=== PATIENT | male | born 1945 | race Two or more races ===

== ENCOUNTER 2024-02-06 06:26 | Day surgery (SDC) | payer OTHER, SELFPAY ==
[2024-01-26 09:27] VITALS: BMI 24.6
[2024-01-26 10:38] LABS: Hematocrit 48.2 % (39.0-52.0); Hemoglobin 16.4 g/dL (13.0-18.0); Mean Corpuscular Volume 91.1 fL (80.0-94.0); Mean Platelet Volume 10.2 fL (7.4-10.4); Platelet Count 206 10^3/uL (130-400); Red Blood Cell Count 5.29 10^6/uL (4.70-6.10); Red Cell Dist. Width 12.4 % (11.5-14.5); White Blood Cell Count 3.7 10^3/uL (4.8-10.8)
[2024-01-26 11:25] LABS: Blood Urea Nitrogen 24 mg/dl (9-20); Calcium 9.4 mg/dl (8.4-10.2); Carbon Dioxide 26 mmol/L (22-30); Chloride 104 mmol/L (98-107); Estimated Creatinine Clearance 69 ml/min; Glucose 81 mg/dl (70-99); Potassium 4.4 mmol/L (3.5-5.1); Sodium 141 mmol/L (135-145); eGFR > 60.00
[2024-02-06] VITALS (10 sets, daily range): BP systolic 139–182; BP diastolic 73–93; BMI 24.6
[2024-02-06] MEDS: TYLENOL 1000 MG PO (06:34)
--- NOTE | 2024-02-06 06:57 | PTCARENOTE ---
No IVF started due to the IV shortage and protocol.
--- NOTE | 2024-02-06 07:02 | HP.FOC2 ---
Focused History & Physical
Chief Complaint
HPI:
Chief Complaint: Left inguinal hernia
HPI / Indication for Planned Procedure: Patient is a 79-year-old male recently seen in outpatient surgical evaluation secondary to a history of swelling in the left inguinal region. This past June,, he noticed the acute onset of discomfort,
pain and swelling in the left inguinal region. He has been utilizing a truss for management since. Hernia is bothersome for him some days more than others. Outpatient surgical evaluation confirmed the presence of his left inguinal hernia. He
presents today for scheduled operative correction.
Relevant Past Medical History: Other (Hypercholesterolemia, BPH, history of kidney stones)
Relevant Social History: Negative
Relevant Family History: Negative
Relevant Past Surgical History: Positive for (Prostate surgery, open right inguinal hernia repair)
Review of Systems
Review of Pertinent Systems: All Systems Negative
Medication
See Medication form for detailed medications: Yes
Medication List (including Herbals & OTC):
aspirin 81 mg capsule 81 mg PO DAILY 01/27/24
atorvastatin 10 mg tablet 20 mg PO HS 01/27/24
szguitmg-mo-gfizc 300 mcg-K 60 mcg-lycop 600 mcg-lutein 300 mcg tablet (Centrum Silver Men) 1 tab PO DAILY 01/27/24
Medications Reviewed: Yes
Allergies and Reactions
Patient has Allergies: No
Noted Allergies and Reactions:
Allergy/AdvReac Type Severity Reaction Status Date / Time
No Known Allergies Allergy Unverified 02/06/24 06:26
Pertinent Physical Exam
All Other Systems: Negative
Head/Neck: Normal
Lungs: Normal
Heart: Normal
Abdomen: Other (Left inguinal hernia)
Extremities: Normal
Neurological: Normal
Diagnosis / Assessment
79-year-old male presenting for scheduled operative correction symptomatic left inguinal hernia
Plan / Procedure
Robotic assisted laparoscopic repair left inguinal hernia with mesh
Anesthesia/Sedation to be done by Anesthesia Provider: Yes
--- NOTE | 2024-02-06 07:05 | W.SUR.PREOP ---
Pre-Operative Surgical Note
-
I have examined this patient prior to the performance of the scheduled procedure.
The patient's condition is unchanged from the time of the current History and
Physical and the patient is able to undergo the scheduled procedure.
--- NOTE | 2024-02-06 09:16 | W.IMMPOSTOP ---
Surgical Immed Post Op Note
-
Primary Surgeon: Robyn
Assisting Surgeon: Asya ARTIS
Pre-op Diagnosis: Left inguinal hernia
Post-op Diagnosis: Left inguinal hernia
Procedure Performed: RAL HEBER repair left inguinal hernia with mesh
Anesthesia Type: GETA +0.25% Marcaine
Specimen / Cultures: None
Estimated Blood Loss: 6 mL
Complications: None immediate
Operative Findings: Large left indirect inguinal hernia, slider containing sigmoid colon and mesentery. Cord lipoma reduced and excised as well to facilitate mesh placement. Left direct and femoral spaces normal. 3D max extra-large mid weight
mesh repair secured to Trenton's ligament with 2-0 Vicryl x 2. Peritoneal flap closed with 2-0 Monocryl STRATAFIX spiral. No incidental operative findings.
--- NOTE | 2024-02-06 09:38 | OR.RPT ---
Operative Report
Operative Report
Date of operative procedure: 02/06/2024
Primary Surgeon: Jhoan Carlson MD
Assisting Surgeon: STEFF Ham
Pre-op Diagnosis: Left inguinal hernia.
Post-op Diagnosis: Left inguinal hernia, indirect, slider.
Procedure Performed: Robotic assisted laparoscopic HEBER repair left inguinal hernia with mesh; 3D max extra-large mid weight.
Anesthesia Type: GETA +0.25% Marcaine.
Specimen / Cultures: None/none.
Estimated Blood Loss: 6 mL.
Complications: None immediate.
Indications for operative procedure: Mr. Macdonald is a 79-year-old male recently seen in outpatient surgical evaluation secondary to a history of swelling in the left inguinal region. This past June,, he noticed the acute onset of
discomfort, pain and swelling in the left inguinal region. He has been utilizing a truss for management since. The inguinal hernia is bothersome for him some days more than others. Outpatient surgical evaluation confirmed the presence of his left
inguinal hernia. I reviewed with the patient preoperatively management options. He wished to pursue operative correction. We discussed various operative approaches to repair and elected to proceed with a robotic assisted laparoscopic left
inguinal herniorrhaphy with mesh. The anticipated operative procedure was fully reviewed in detail with the patient preoperatively obtaining written informed consent.
Brief summary of operative Findings: Large left indirect inguinal hernia, slider containing sigmoid colon and portions of its mesentery. A lipoma of the cord structures was identified, reduced and excised as well to facilitate mesh placement. The
left direct and femoral spaces were normal. 3D max extra-large mid weight mesh repair secured to Trenton's ligament with 2-0 Vicryl x 2. Peritoneal flap closed with 2-0 Monocryl STRATAFIX spiral. No incidental operative findings.
Operation detail: The patient was identified in the preoperative holding area. I confirmed the surgical site and side with the patient preoperatively which was then marked and initialed by myself. He was interviewed by the anesthesia and nursing
staff then brought back to the operating room. The patient was placed on the operating table in supine position. The bilateral upper extremities were carefully padded and tucked at his side utilizing the arm guard positioning system. Pneumatic
compression boots were on the bilateral lower extremities. Following induction of general endotracheal anesthesia the patient was administered Ancef 2 g IV for prophylactic antibiotic coverage. The patient's anterior abdominal wall was now widely
and sterilely prepped with ChloraPrep and then draped in the usual manner. The surgical timeout was completed and the procedure was confirmed.
I initially proceeded with Veress needle insufflation in the left subcostal midclavicular line location. Once insufflated to 12 mmHg pressure then a left midclavicular line 8 mm trocar was then placed. The robotic scope was inserted, there was no
evidence of iatrogenic injury from access. The Veress needle was withdrawn. An epigastric 8 mm trocar was placed just to the left of the midline. A right midclavicular line 8 mm trocar was placed. The patient was then transition into
Trendelenburg to expose the inguinal/pelvic space and the robot was docked.
At the surgeon console inspection of the pelvis confirmed the presence of a large left indirect inguinal hernia, slider containing sigmoid colon and portions of its mesentery as well. The left direct and femoral spaces were normal. There was no
right inguinal hernia. There were no additional incidental intra-abdominal findings.
I initially began with creation of a peritoneal flap at the level of the left ASIS to the left medial umbilical ligament. The preperitoneal plane was now established along the length of the flap and developed inferiorly down to the inguinal space.
The medial dissection proceeded until the notch of the pubic symphysis was exposed at the midline followed by Trenton's ligament on the left side. Trenton's ligament was now cleared through the direct and femoral space; both of which were normal.
The underside of Trenton's ligament was exposed as well. The peritoneal flap was now mobilized laterally down to the internal ring. The hernia sac was then grasped and begun to be reduced out of the inguinal canal from an anterior lateral to
anterior medial approach. I carefully continued to reduce the hernia sac off of the cremasteric fibers and cord contents all the way to the apex of the hernia sac. In doing so a moderate size lipoma of the inguinal canal and cord structures was
identified. It was reduced off of the hernia sac and then excised to facilitate mesh placement. Next the hernia sac was now reduced off of its posterior attachments with identification of the vas and the spermatic cord vessels. The hernia sac
dissection continued back proximally carefully mobilizing sigmoid colon mesentery attachments to the cord structures back past the turn in the left vas deferens and then overlying the left iliac space to meet up with the medial dissection. The
posterior dissection continued until there was wide separation between the vas and the spermatic cord vessels. The dissection continued posterior laterally for full exposure of the myopectineal orifice.
With the myopectineal orifice now completely exposed hemostasis was confirmed. A 3D max extra-large mid weight mesh was utilized for repair. The mesh was positioned parallel to the ileopubic tract. It was secured at 2 separate locations inferior
medially on Trenton's ligament with 2 simple interrupted 2-0 Vicryl sutures. The patient was now begun to be taken out of Trendelenburg to confirm that the posterior aspect of the mesh was lying flat and that there was no shelling or undermining of
the mesh by the peritoneal edge. Insufflation pressure was also reduced down to 8 mmHg pressure at this point. The peritoneal flap was now closed with a 2-0 Monocryl STRATAFIX spiral suture with a running Paradise type stitch.
A flexible suction catheter was placed through the left lateral 8 mm trocar and introduced into the peritoneal flap to evacuate the air out of the preperitoneal space. This again confirmed good positioning of the inguinal hernia mesh. There was no
shelling or folding of the mesh and no undermining and mesh by the peritoneal edge. The peritoneal covering of the mesh was complete and intact.
The robot was now undocked. All sponge instrument and needle counts were confirmed to be correct x 2. The CO2 insufflation was carefully evacuated out of the abdominal cavity. The trocar sites were removed as well as the flexible suction
catheter. Skin was closed with 4-0 Monocryl. Sterile surgical glue dressings were applied. The patient tolerated the procedure well and was transferred to the recovery unit for routine postoperative monitoring.
I was present for the entirety of the operative procedure.
[2024-02-06] MEDS: DILAUDID 0.25 MG IV ×2 (09:42→10:03)
== END 2024-02-06 12:08 | disposition home or self-care (01) ==
LOC: SDS 06:26
PROVIDERS: ATTENDING PHYSICIAN Surgery; FAMILY PHYSICIAN Family Medicine
PROC: 0YU64JZ Supplement Left Inguinal Region with Synthetic Substitute, Percutaneous Endoscopic Approach (ICD-10-PCS; 2024-02-06)
PROC: 8E0W4CZ Robotic Assisted Procedure of Trunk Region, Percutaneous Endoscopic Approach (ICD-10-PCS; 2024-02-06)
DX: K40.90 Unilateral inguinal hernia, without obstruction or gangrene, not specified as recurrent (principal)
CPT/HCPCS: 49650; 36415; 80048; 85027; 93005; C1781

== ENCOUNTER 2024-12-23 20:52 | Emergency (ER) | payer OTHER, SELFPAY ==
[2024-12-23 20:57] VITALS: BP 193/109
[2024-12-23 21:18] LABS: Urine Character Slightly Cloudy (Clear)
[2024-12-23 21:22] LABS: Hematocrit 50.6 % (39.0-52.0); Hemoglobin 17.4 g/dL (13.0-18.0); Mean Corp Hgb Conc. 34.4 g/dL (33.0-37.0); Mean Corpuscular Volume 89.9 fL (80.0-94.0); Nucleated Red Blood Cells % 0 % (-); Platelet Count 252 10^3/uL (130-400); Red Cell Dist. Width 12.4 % (11.5-14.5)
[2024-12-23 21:31] VITALS: BP 178/112
[2024-12-23 21:32] VITALS: BMI 24.8
[2024-12-23 21:33] LABS: ALT (SGPT) 21 U/L (0-50); AST (SGOT) 19 U/L (17-59); Albumin 4.7 g/dl (3.5-5.0); Alkaline Phosphatase 90 U/L (38-126); Blood Urea Nitrogen 17 mg/dl (9-20); Calcium 10.0 mg/dl (8.4-10.2); Carbon Dioxide 25 mmol/L (22-30); Chloride 106 mmol/L (98-107); Glucose 104 mg/dl (70-99); Potassium 4.4 mmol/L (3.5-5.1); Sodium 139 mmol/L (135-145); Total Protein 7.3 g/dl (6.3-8.2); eGFR > 60.00
[2024-12-23 21:34] LABS: Urine Squamous Cell 0-2 /LPF (Few)
[2024-12-23 21:35] LABS: Urine White Cell 0-2 /HPF (0-5)
[2024-12-23] MEDS: MOTRIN 600 MG PO (21:43)
[2024-12-23] MEDS: FLOMAX 0.4 MG PO (21:44)
[2024-12-23 22:00] VITALS: BP 154/110
--- NOTE | 2024-12-23 23:12 | ED.GENMED ---
History of Present Illness
General
Chief Complaint: Flank Pain
Time Seen by Provider: 12/23/24 21:25
History of Present Illness
History of Present Illness:
79-year-old male presents the emergency department for evaluation of intermittent right flank and right lower quadrant pain that has been ongoing for the past 4 days. Pain seems to be only present at nighttime, severe when it develops but then
resolved spontaneously. Roosevelt comparable to past kidney stones but he has never had waxing waning symptoms like this. Denies any dysuria or hematuria. No fevers or chills. Denies any nausea, vomiting, or diarrhea.
Review of Systems
Review of Systems
Allergies reviewed?: Yes
All Other Systems: ROS reviewed and negative except as documented in HPI and ROS
Phy Exam
Physical Exam
Physical Exam:
GEN: Well appearing, NAD, WDWN
HEENT: Oral mucosa moist, no scleral icterus
Cardiac: Regular rate
Lung: No respiratory distress, no tachypnea
Abdomen: Soft, nontender, no rigidity or palpable masses, no CVA tenderness
MSK: No gross deformity or injuries
Skin: Good color, no pallor or jaundice, no rashes
Neuro: AO x3, moves all extremities freely
Psych: Calm, cooperative
Course
Orders/Labs/Results
Orders:
Orders
12/23/24 21:09
Complete Blood Count/With Diff Urgent
Comprehensive Metabolic Panel Urgent
Urinalysis Reflex To Culture Urgent
Date Specimen was Collected: 12/23/24
Time Specimen was Collected: 21:01
Urine Microscopic Reflex Cult Urgent
Urine Culture Urgent
FÁTIMA Source: U
Specimen Description:
Date Specimen was Collected: 12/23/24
Time Specimen was Collected: 21:01
12/23/24 21:37
Ibuprofen [Motrin] 600 mg PO NOW STA
Tamsulosin [Flomax] 0.4 mg PO NOW STA
12/23/24 21:38
CT Abd/pel Without Iv Or Oral Urgent
Comment:
Reason For Exam: R flank pain
Abnormal Lab Results
12/23/24
21:09
Absolute Monos (auto) 0.8 H 10^3/uL
(0.1-0.6)
Lymphocytes % 19.2 L %
(20.5-51.1)
Monocytes % 11.0 H %
(1.7-9.3)
Glucose 104 H mg/dl
(70-99)
Ur Occult Blood Reflex 3+ A
(Negative)
Leukocyte Esterase Rfl 1+ A
(Negative)
Urine RBC 3-6 A /HPF
(0-2)
Urine Bacteria (Reflex) Few A
(Negative)
Urine Albumin (Reflex) 1+ A
(Neg - Trace)
12/23/24 21:09
12/23/24 21:09
Vital Signs
Initial and Last Documented VS:
Initial Vital Signs
Temp Pulse Resp BP Pulse Ox
98.0 F 66 18 193/109 96
12/23/24 20:57 12/23/24 20:57 12/23/24 20:57 12/23/24 20:57 12/23/24 20:57
Last Documented Vital Signs
Temp Pulse Resp BP Pulse Ox
98.0 F 66 18 154/110 95
12/23/24 20:57 12/23/24 20:57 12/23/24 20:57 12/23/24 22:00 12/23/24 22:45
MDM/Problems Addressed
MDM/Problems Addressed:
Patient CT is unremarkable. It is not clear immediately why he has recurrent nocturnal right flank pain. Aorta does not appear to be enlarged or aneurysmal on noncontrast study. He had no pain in the emergency department. No reproducible pain on
exam to suggest acute surgical abdominal pathology. Do not feel that there would be additional benefit to contrast-enhanced images. Urinalysis will be sent for culture given hematuria patient is recommended to see urology as an outpatient
*Pulse Oximetry
SaO2: 95
Oxygen Mode of Delivery: Room air
Patient hypoxic: no
*Critical Care Note
Total Time (30-74mins, 75-104mins- exclusive of procedures): Not Applicable
ED Attending Note
-
Portions of this chart may have been created with voice recognition software.� Occasional wrong word or��sound alike� substitutions may have occurred due to the inherent limitations of voice recognition software.
Discharge Plan
Departure
Patient Disposition: Home (Routine Discharge)
Date of Disposition: 12/23/24
Time of Disposition: 23:21
Patient with high blood pressure during this ER visit?: Yes
Discharge Problem:
Acute right flank pain
Instructions: Flank Pain (DC)
Prescriptions:
New
celecoxib [Celebrex] 200 mg capsule
200 mg PO BID Qty: 15 0RF
No Action
atorvastatin 10 mg Tablet
20 mg PO HS
Centrum Silver Men [phone] mcg Tablet
1 tab PO DAILY
aspirin 81 mg Capsule
81 mg PO DAILY
Patient Comments:
patient stopped due to bruising
tramadol 50 mg tablet
50 mg PO Q6HPRN PRN (Reason: severe pain/breakthrough pain) Qty: 7 0RF
acetaminophen [Tylenol Extra Strength] 500 mg tablet
1,000 mg PO Q6HPRN PRN (Reason: mild pain) Qty: 1 0RF
ibuprofen 200 mg tablet
400 mg PO Q6HPRN PRN (Reason: moderate pain) Qty: 1 0RF
polyethylene glycol 3350 [Miralax] 17 gram/dose powder
4 g PO DAILY PRN (Reason: Constipation) Qty: 119 0RF
Rx Instructions:
start a laxative such as MIRALAX on day 2 after surgery if no bowel movement yet as long as no nausea/vomiting and passing gas
Referrals:
Amrit Dee MD [Family Provider, Family Practice]
Wilson Oshea MD [Active, Urology]
Activity Restrictions/Additional Instructions:
As we discussed there is no clear cause of your pain at this time. Your CT shows no evidence of kidney stone. Your blood work is unremarkable however your urine specimen does show blood in the urine and a small amount of bacteria. A urine culture
is pending and if that shows bacteria we will call you and start you on antibiotics
I recommend you see a urologist to further investigate the cause of the blood in your urine
If your pain becomes more frequent or more severe do not hesitate to return to the emergency department for reevaluation
I have prescribed you a medication called Celebrex to treat your pain symptoms, please take this twice a day but do not take [id number] ibuprofen along with this
Interventions
Interventions:
*Risk Screen - Suicide Last Done: 12/23/24 20:59
*General Assessment Last Done: 12/23/24 20:59
*Neglect/Abuse Screening Last Done: 12/23/24 20:59
*ED- Fall Risk Assessment Last Done: 12/23/24 21:32
*ED COVID-19 Vaccine History Last Done: 12/23/24 20:59
OD-Ajtfps-Ndlunopzzm Assessment Last Done: 12/23/24 21:32
ED-Male Genitourinary Assessment Last Done: 12/23/24 21:32
Discharge Date and Time
Print Language: CUBAN
[2024-12-23] MEDS: PERCOCET 5/325 1 TABLET PO (23:27)
== END 2024-12-23 23:48 | disposition home or self-care (01) ==
LOC: EMR 20:52
PROVIDERS: EMERGENCY PHYSICIAN Student in an Organized Health Care Education/Training Program; FAMILY PHYSICIAN Family Medicine
DX: R10.31 Right lower quadrant pain (principal)
CPT/HCPCS: 99284; 74176; 80053; 81003; 81015; 85025; 87086

== ENCOUNTER 2024-12-26 03:28 | Emergency (ER) | payer OTHER, SELFPAY ==
[2024-12-26 03:33] VITALS: BP 196/104
--- NOTE | 2024-12-26 04:09 | ED.GENMED ---
History of Present Illness
General
Chief Complaint: Flank Pain
Time Seen by Provider: 12/26/24 04:11
Review of Systems
Review of Systems
All Other Systems: ROS reviewed and negative except as documented in HPI and ROS
Course
Orders/Labs/Results
Orders:
Orders
12/26/24 04:12
CT Abd/pel Without Iv Or Oral Urgent
Comment:
Reason For Exam: flank pain
12/26/24 04:26
Ketorolac [Toradol] 15 mg .ROUTE .STK-MED ONE
Ondansetron Injectable [Zofran] 4 mg .ROUTE .STK-MED ONE
12/26/24 04:31
Ketorolac [Toradol] 15 mg IV NOW STA
12/26/24 04:37
Complete Blood Count/With Diff Urgent
Comprehensive Metabolic Panel Urgent
Lipase Urgent
12/26/24 05:49
Morphine Sulfate 4 mg .ROUTE .STK-MED ONE
12/26/24 05:51
Morphine Sulfate 4 mg IV NOW STA
12/26/24 05:56
Urinalysis Reflex To Culture Urgent
Date Specimen was Collected: 12/26/24
Time Specimen was Collected: 05:51
Urine Microscopic Reflex Cult Urgent
Abnormal Lab Results
12/26/24 12/26/24
04:37 05:56
Absolute Lymphs (auto) 0.9 L 10^3/uL
(1.2-3.4)
Lymphocytes % 16.6 L %
(20.5-51.1)
Monocytes % 9.8 H %
(1.7-9.3)
Glucose 109 H mg/dl
(70-99)
Ur Occult Blood Reflex 2+ A
(Negative)
Urine RBC 7-10 A /HPF
(0-2)
Urine Bacteria (Reflex) Few A
(Negative)
Urine Albumin (Reflex) 1+ A
(Neg - Trace)
12/26/24 04:37
12/26/24 04:37
Vital Signs
Initial and Last Documented VS:
Initial Vital Signs
Temp Pulse Resp BP Pulse Ox
97.8 F 72 16 196/104 98
12/26/24 03:33 12/26/24 03:33 12/26/24 03:33 12/26/24 03:33 12/26/24 03:33
Last Documented Vital Signs
Temp Pulse Resp BP Pulse Ox
98.3 F 82 17 159/101 95
12/26/24 05:56 12/26/24 06:37 12/26/24 06:37 12/26/24 06:29 12/26/24 06:37
*Pulse Oximetry
SaO2: 98
Oxygen Mode of Delivery: Room air
ED Attending Note
-
Portions of this chart may have been created with voice recognition software.� Occasional wrong word or��sound alike� substitutions may have occurred due to the inherent limitations of voice recognition software.
Discharge Plan
Departure
Prescriptions:
No Action
atorvastatin 10 mg Tablet
20 mg PO HS
Centrum Silver Men [phone] mcg Tablet
1 tab PO DAILY
aspirin 81 mg Capsule
81 mg PO DAILY
Patient Comments:
patient stopped due to bruising
tramadol 50 mg tablet
50 mg PO Q6HPRN PRN (Reason: severe pain/breakthrough pain) Qty: 7 0RF
acetaminophen [Tylenol Extra Strength] 500 mg tablet
1,000 mg PO Q6HPRN PRN (Reason: mild pain) Qty: 1 0RF
ibuprofen 200 mg tablet
400 mg PO Q6HPRN PRN (Reason: moderate pain) Qty: 1 0RF
polyethylene glycol 3350 [Miralax] 17 gram/dose powder
4 g PO DAILY PRN (Reason: Constipation) Qty: 119 0RF
Rx Instructions:
start a laxative such as MIRALAX on day 2 after surgery if no bowel movement yet as long as no nausea/vomiting and passing gas
celecoxib [Celebrex] 200 mg capsule
200 mg PO BID Qty: 15 0RF
Referrals:
Amrit Dee MD [Family Provider, Family Practice]
Interventions
Interventions:
*Risk Screen - Suicide Last Done: 12/26/24 03:33
*General Assessment Last Done: 12/26/24 04:27
*Neglect/Abuse Screening Last Done: 12/26/24 04:27
*ED- Fall Risk Assessment Last Done: 12/26/24 04:27
*ED COVID-19 Vaccine History Last Done: 12/26/24 04:27
YM-Lhandy-Fqaayzrfqa Assessment Last Done: 12/26/24 04:41
ED-Male Genitourinary Assessment Last Done: 12/26/24 04:41
Discharge Date and Time
Print Language: MONEGASQUE
[2024-12-26 04:27] VITALS: BMI 24.5
[2024-12-26] MEDS: TORADOL 15 MG IV (04:36)
[2024-12-26 04:52] LABS: Hematocrit 48.0 % (39.0-52.0); Hemoglobin 16.7 g/dL (13.0-18.0); Mean Corp Hgb Conc. 34.8 g/dL (33.0-37.0); Mean Corpuscular Volume 88.9 fL (80.0-94.0); Nucleated Red Blood Cells % 0 % (-); Platelet Count 216 10^3/uL (130-400); Red Cell Dist. Width 12.3 % (11.5-14.5)
[2024-12-26 05:13] LABS: ALT (SGPT) 17 U/L (0-50); AST (SGOT) 17 U/L (17-59); Albumin 4.1 g/dl (3.5-5.0); Alkaline Phosphatase 91 U/L (38-126); Blood Urea Nitrogen 18 mg/dl (9-20); Calcium 9.3 mg/dl (8.4-10.2); Carbon Dioxide 26 mmol/L (22-30); Chloride 106 mmol/L (98-107); Estimated Creatinine Clearance 79 ml/min; Glucose 109 mg/dl (70-99); Lipase 53 U/L (23-300); Potassium 4.5 mmol/L (3.5-5.1); Sodium 138 mmol/L (135-145); Total Protein 6.3 g/dl (6.3-8.2); eGFR > 60.00
[2024-12-26] MEDS: MORPHINE SULFATE 4 MG IV (05:51)
[2024-12-26 05:56] VITALS: BP 168/119
[2024-12-26 06:29] VITALS: BP 159/101
[2024-12-26 06:33] LABS: Urine Character Clear (Clear)
[2024-12-26 06:43] LABS: Urine White Cell 0-2 /HPF (0-5)
--- NOTE | 2024-12-26 06:48 | ED.GENMED ---
History of Present Illness
<Rj Hussein, DO - Last Filed: 12/27/24 21:55>
General
Chief Complaint: Flank Pain
Source: patient
Exam Limitations: none
Time Seen by Provider: 12/26/24 04:11
Nursing documentation reviewed up to this point in time: agreed with
History of Present Illness
History of Present Illness:
Note:
CHIEF COMPLAINT(S)
Severe right-sided back pain
HISTORY OF PRESENT ILLNESS
The patient is a 79-year-old male with a history of previous kidney stones, presenting with severe right sided back pain. The pain started on evening and has been intermittent, disappearing during the day on Tuesday and Tuesday but
returning in the evenings. The patient experienced worsening symptoms on Tuesday night, prompting a visit to the emergency room where a computed tomography (CT) scan revealed no evidence of a recent kidney stone, although there are known stones in
one kidney. The visit also identified hematuria, prompting further urine analysis. The patient received a single dose of Percocet, which provided relief and facilitated sleep. Since then, the pain has been progressively worsening, reaching a
severity level described by the patient as '10 and plus' on a pain scale, with significant discomfort while lying down and difficulty finding a comfortable position. The patient attempted to schedule a urology follow-up but could only secure an
appointment for January 18.
PHYSICAL EXAM
General: Alert, no acute distress.
Skin: Warm, dry.
Head: Normocephalic, atraumatic.
Neck: Supple, trachea midline.
Eye Ears, nose, mouth and throat: Oral mucosa moist.
Cardiovascular: Normal peripheral perfusion, No edema.
Respiratory: Respirations are non-labored.
Gastrointestinal: Abdomen nondistended.
Back: Normal range of motion, Tenderness noted on the right side.
Musculoskeletal: Normal range of motion, normal strength.
Neurological: Alert and oriented to person, place, time, and situation, No focal neurological deficit observed.
Psychiatric: Cooperative, appropriate mood & affect.
PLAN
1. Repeat CT scan to assess for any interval changes or new findings.
2. Administer pain medication and provide intravenous fluids.
3. Encourage follow-up with a urologist, with an appointment scheduled for January 18.
DIFFERENTIAL DIAGNOSIS
The Differential Diagnosis includes, in no particular order and is not limited to:
1. Nephrolithiasis (kidney stones)
2. Pyelonephritis
3. Musculoskeletal back pain
4. Rib fracture or injury
5. Abdominal aortic aneurysm
6. Herpes zoster
7. Ureteral obstruction
8. Radiculopathy
9. Pancreatitis
10. Pleural effusion
Phy Exam
<Rj Hussein DO - Last Filed: 12/27/24 21:55>
Physical Exam
Physical Exam:
.
Course
<Rj Hussein, DO - Last Filed: 12/27/24 21:55>
Orders/Labs/Results
Orders:
Orders
12/26/24 04:12
CT Abd/pel Without Iv Or Oral Urgent
Comment:
Reason For Exam: flank pain
12/26/24 04:26
Ketorolac [Toradol] 15 mg .ROUTE .STK-MED ONE
Ondansetron Injectable [Zofran] 4 mg .ROUTE .STK-MED ONE
12/26/24 04:31
Ketorolac [Toradol] 15 mg IV NOW STA
12/26/24 04:37
Complete Blood Count/With Diff Urgent
Comprehensive Metabolic Panel Urgent
Lipase Urgent
12/26/24 05:49
Morphine Sulfate 4 mg .ROUTE .STK-MED ONE
12/26/24 05:51
Morphine Sulfate 4 mg IV NOW STA
12/26/24 05:56
Urinalysis Reflex To Culture Urgent
Date Specimen was Collected: 12/26/24
Time Specimen was Collected: 05:51
Urine Microscopic Reflex Cult Urgent
12/26/24 07:33
CT Abd/pel W Iv And Oral Contr Urgent
Comment:
Reason For Exam: right flank pain, microhematuria
Iohexol [Omnipaque] See Protocol PO NOW STA
Abnormal Lab Results
12/26/24 12/26/24
04:37 05:56
Absolute Lymphs (auto) 0.9 L 10^3/uL
(1.2-3.4)
Lymphocytes % 16.6 L %
(20.5-51.1)
Monocytes % 9.8 H %
(1.7-9.3)
Glucose 109 H mg/dl
(70-99)
Ur Occult Blood Reflex 2+ A
(Negative)
Urine RBC 7-10 A /HPF
(0-2)
Urine Bacteria (Reflex) Few A
(Negative)
Urine Albumin (Reflex) 1+ A
(Neg - Trace)
12/26/24 04:37
12/26/24 04:37
Vital Signs
Initial and Last Documented VS:
Initial Vital Signs
Temp Pulse Resp BP Pulse Ox
97.8 F 72 16 196/104 98
12/26/24 03:33 12/26/24 03:33 12/26/24 03:33 12/26/24 03:33 12/26/24 03:33
Last Documented Vital Signs
Temp Pulse Resp BP Pulse Ox
98.3 F 82 17 139/80 95
12/26/24 05:56 12/26/24 06:37 12/26/24 06:37 12/26/24 13:15 12/26/24 10:15
<Rodolfo Dillard MD - Last Filed: 12/26/24 12:46>
Orders/Labs/Results
Orders:
Orders
12/26/24 04:12
CT Abd/pel Without Iv Or Oral Urgent
Comment:
Reason For Exam: flank pain
12/26/24 04:26
Ketorolac [Toradol] 15 mg .ROUTE .STK-MED ONE
Ondansetron Injectable [Zofran] 4 mg .ROUTE .STK-MED ONE
12/26/24 04:31
Ketorolac [Toradol] 15 mg IV NOW STA
12/26/24 04:37
Complete Blood Count/With Diff Urgent
Comprehensive Metabolic Panel Urgent
Lipase Urgent
12/26/24 05:49
Morphine Sulfate 4 mg .ROUTE .STK-MED ONE
12/26/24 05:51
Morphine Sulfate 4 mg IV NOW STA
12/26/24 05:56
Urinalysis Reflex To Culture Urgent
Date Specimen was Collected: 12/26/24
Time Specimen was Collected: 05:51
Urine Microscopic Reflex Cult Urgent
12/26/24 07:33
CT Abd/pel W Iv And Oral Contr Urgent
Comment:
Reason For Exam: right flank pain, microhematuria
Iohexol [Omnipaque] See Protocol PO NOW STA
Abnormal Lab Results
12/26/24 12/26/24
04:37 05:56
Absolute Lymphs (auto) 0.9 L 10^3/uL
(1.2-3.4)
Lymphocytes % 16.6 L %
(20.5-51.1)
Monocytes % 9.8 H %
(1.7-9.3)
Glucose 109 H mg/dl
(70-99)
Ur Occult Blood Reflex 2+ A
(Negative)
Urine RBC 7-10 A /HPF
(0-2)
Urine Bacteria (Reflex) Few A
(Negative)
Urine Albumin (Reflex) 1+ A
(Neg - Trace)
12/26/24 04:37
12/26/24 04:37
Vital Signs
Initial and Last Documented VS:
Initial Vital Signs
Temp Pulse Resp BP Pulse Ox
97.8 F 72 16 196/104 98
12/26/24 03:33 12/26/24 03:33 12/26/24 03:33 12/26/24 03:33 12/26/24 03:33
Last Documented Vital Signs
Temp Pulse Resp BP Pulse Ox
98.3 F 82 17 139/80 95
12/26/24 05:56 12/26/24 06:37 12/26/24 06:37 12/26/24 13:15 12/26/24 10:15
<Rj Hussein DO - Last Filed: 12/27/24 21:55>
*Pulse Oximetry
SaO2: 95
Oxygen Mode of Delivery: Room air
Patient hypoxic: no
*Critical Care Note
Total Time (30-74mins, 75-104mins- exclusive of procedures): Not Applicable
<Rj Hussein DO - Last Filed: 12/27/24 21:55>
Update Note
Update Note:
NAME: CLAUS BRIDGES
DATE OF EXAM: 12/26/2024
Patient No: [id number]
Physician: LIANNE^BRITTANI
Date of : 1945
Past Medical History (entered by Technologist):
Reason For Exam (entered by Technologist):
Other Notes (entered by Technologist):
Additional Information (per [facility]):
CT abdomen and pelvis without IV contrast
IMPRESSION:
Renal atrophy without obstructing stone. Correlate with urinalysis if clinically indicated.
Dependent atelectasis. Likely benign liver cysts. No cholecystitis, pancreatitis, appendicitis, or bowel obstruction.
Finalized at 6 AM EST
Darren Bullard M.D.
<Rodolfo Dillard MD - Last Filed: 12/26/24 12:46>
Update Note
Update Note:
NAME: CLAUS BRIDGES
DATE OF EXAM: 12/26/2024
Patient No: [id number]
Physician: LIANNE^RJ^Louis
Date of : 1945
Past Medical History (entered by Technologist):
Reason For Exam (entered by Technologist):
Other Notes (entered by Technologist):
Additional Information (per [facility]):
CT abdomen and pelvis without IV contrast
IMPRESSION:
Renal atrophy without obstructing stone. Correlate with urinalysis if clinically indicated.
Dependent atelectasis. Likely benign liver cysts. No cholecystitis, pancreatitis, appendicitis, or bowel obstruction.
Finalized at 6 AM EST
Darren Bullard M.D.
Repeat CT shows right hepatic and renal cyst renal adenoma. No obstructing stone. Nothing to support renal artery or vein thrombosis, renal infarct. On reexamination patient has a early vesicular rash of his right back and small vesicular rash of
his abdomen. This is most consistent with shingles and I think explains his issues. Will treat for shingles to follow-up. Patient remains nontoxic in appearance
Copy of CT report given to follow-up adrenal adenoma
ED Attending Note
<Rj Hussein DO - Last Filed: 12/27/24 21:55>
-
Portions of this chart may have been created with voice recognition software.� Occasional wrong word or��sound alike� substitutions may have occurred due to the inherent limitations of voice recognition software.
Discharge Plan
Departure
Patient Disposition: Home (Routine Discharge)
Date of Disposition: 12/26/24
Time of Disposition: 12:38
Patient with high blood pressure during this ER visit?: Yes
Discharge Problem:
Flank pain, Shingles, Adrenal adenoma
Instructions: Flank Pain (DC), Shingles, BLOOD PRESSURE
Prescriptions:
New
famciclovir 500 mg tablet
500 mg PO Q8H 7 Days Qty: 21 0RF
hydrocodone-acetaminophen 5-325 mg tablet
1 tab PO Q6H PRN (Reason: Pain) Qty: 14 0RF
No Action
atorvastatin 10 mg Tablet
20 mg PO HS
Centrum Silver Men [id number] mcg Tablet
1 tab PO DAILY
aspirin 81 mg Capsule
81 mg PO DAILY
Patient Comments:
patient stopped due to bruising
tramadol 50 mg tablet
50 mg PO Q6HPRN PRN (Reason: severe pain/breakthrough pain) Qty: 7 0RF
acetaminophen [Tylenol Extra Strength] 500 mg tablet
1,000 mg PO Q6HPRN PRN (Reason: mild pain) Qty: 1 0RF
ibuprofen 200 mg tablet
400 mg PO Q6HPRN PRN (Reason: moderate pain) Qty: 1 0RF
polyethylene glycol 3350 [Miralax] 17 gram/dose powder
4 g PO DAILY PRN (Reason: Constipation) Qty: 119 0RF
Rx Instructions:
start a laxative such as MIRALAX on day 2 after surgery if no bowel movement yet as long as no nausea/vomiting and passing gas
celecoxib [Celebrex] 200 mg capsule
200 mg PO BID Qty: 15 0RF
Referrals:
Amrit Dee MD [Family Provider, Family Practice]
Activity Restrictions/Additional Instructions:
The prescriptions were sent to your pharmacy
Do not take the Tylenol and the Vicodin both. They both contain Tylenol
Interventions
Interventions:
*Risk Screen - Suicide Last Done: 12/26/24 03:33
*General Assessment Last Done: 12/26/24 04:27
*Neglect/Abuse Screening Last Done: 12/26/24 04:27
*ED- Fall Risk Assessment Last Done: 12/26/24 04:27
*ED COVID-19 Vaccine History Last Done: 12/26/24 04:27
*Nursing Disposition Last Done: 12/26/24 13:15
VM-Qephsf-[id number] Assessment Last Done: 12/26/24 04:41
ED-Male Genitourinary Assessment Last Done: 12/26/24 04:41
Discharge Date and Time
Discharge Date/Time: 12/26/24 13:17
Print Language: [id number]
[2024-12-26] MEDS: OMNIPAQUE 50 ML PO (07:54)
[2024-12-26 13:15] VITALS: BP 139/80
== END 2024-12-26 13:17 | disposition home or self-care (01) ==
LOC: EMR 03:28
PROVIDERS: EMERGENCY PHYSICIAN Student in an Organized Health Care Education/Training Program; FAMILY PHYSICIAN Family Medicine
DX: B02.9 Zoster without complications (principal); D35.01 Benign neoplasm of right adrenal gland; R03.0 Elevated blood-pressure reading, without diagnosis of hypertension; K76.89 Other specified diseases of liver; N28.1 Cyst of kidney, acquired; Z79.82 Long term (current) use of aspirin; Z87.442 Personal history of urinary calculi
CPT/HCPCS: 99284; 96374; 96375; 74176; 74177; 80053; 81003; 81015; 83690; 85025; Q9967